=== PATIENT | male | born 1955 | race African-American/Black ===

== ENCOUNTER 2020-08-30 05:55 | Inpatient (IN) | payer OTHER ==
[2020-08-25 12:08] VITALS: BMI 36.5
[~2020-08-30 05:55] MED LIST: BUPIVICAINE 0.25%/MORPH PF/KETOROLAC - 51ML DISP.SYRINGE IA ONE; VANCOMYCIN 1,000 MG VIAL (RESTRICTED TO ID ONLY) IVPB ONE
[2020-08-30] MEDS ORDERED: BUPIVACAINE HCL/PF 0.5% (5 MG/ML) 30 ML VIAL IJ ONE (07:00)
[2020-08-30] MEDS ORDERED: MIDAZOLAM HCL 2 MG/2 ML SINGLE DOSE VIAL ONE ×2 (07:00→10:23)
[2020-08-30] MEDS ORDERED: PROPOFOL 20 ML ONE ×5 (07:15→08:13)
[2020-08-30] MEDS ORDERED: SUCCINYLCHOLINE CHLORIDE 200 MG/10 ML SYRINGE ONE (07:15)
[2020-08-30] MEDS ORDERED: VANCOMYCIN 1,000 MG VIAL (RESTRICTED TO ID ONLY) ONE (07:27)
[2020-08-30] MEDS ORDERED: BUPIVACAINE HCL 50 ML ONE (07:57)
[2020-08-30] MEDS ORDERED: ceFAZolin SODIUM 1 GM VIAL ONE ×2 (08:20→08:23)
[2020-08-30] MEDS ORDERED: TRANEXAMIC ACID 1000 MG/10 ML VIAL ONE (08:36)
[2020-08-30] MEDS ORDERED: ePHEDrine SULFATE 50 MG/1 ML AMPULE ONE (08:53)
[2020-08-30] MEDS ORDERED: BUPIVICAINE 0.25%/MORPH PF/KETOROLAC - 51ML DISP.SYRINGE IA ONE ×2 (08:53→10:19)
[2020-08-30] MEDS ORDERED: VANCOMYCIN 1,000 MG VIAL (RESTRICTED TO ID ONLY) IVPB ONE (10:14)
[2020-08-30] MEDS ORDERED: ONDANSETRON 4 MG/2 ML VIAL IVPUSH PRN ×2 (11:14→11:15)
[2020-08-30] MEDS ORDERED: MAG HYDROX/AL HYDROX/SIMETH 30 ML UNIT-DOSE CUP PO PRN (11:14)
[2020-08-30] MEDS ORDERED: MAGNESIUM HYDROX 2400MG/30ML ORAL SUSPENSION 30 ML CUP PO PRN (11:14)
[2020-08-30] MEDS ORDERED: ACETAMINOPHEN 1000 MG/100 ML VIAL (NON FORMULARY) IVPB ONE (11:15)
[2020-08-30] MEDS ORDERED: oxyCODONE HCL 5 MG TABLET PO PRN ×2 (11:15)
[2020-08-30] MEDS ORDERED: LACTATED RINGERS SOLUTION 1,000 ML IV SCH (11:15)
[2020-08-30] MEDS ORDERED: traMADol HCL 50 MG TABLET PO PRN (11:15)
[2020-08-30] MEDS ORDERED: LORazepam 2 MG/ML SDV VIAL ONE (11:19)
[2020-08-30] MEDS: LORazepam 2 MG/ML SDV VIAL IVPUSH SCH ×2 (11:20→11:35)
[2020-08-30] MEDS ORDERED: ACETAMINOPHEN INJECTION 100 ML IVPB ONE (11:49)
[2020-08-30 13:51] LABS: HIV INTERPRETATION NEGATIVE (NEGATIVE)
[2020-08-30] MEDS: CEFAZOLIN 3 GM in DEXTROSE 5%-WATER - 100 ML IVPB SCH (16:14)
[2020-08-30] MEDS: ATORVASTATIN CA 10 MG TABLET (FP) PO SCH (21:14)
[2020-08-30] MEDS: GABAPENTIN 300 MG CAPSULE PO SCH (21:15)
[2020-08-30] MEDS: oxyCODONE HCL 10 MG SUSTAINED ACTING TABLET PO SCH (21:15)
[2020-08-30] MEDS: SENNOSIDES/DOCUSATE COMBO (SENNA PLUS) TABLET (UD) PO SCH (21:15)
[2020-08-31] MEDS ORDERED: DEXTROSE 5%-WATER 100 ML IVPB ONE ×3 (00:13→16:58)
[2020-08-31] MEDS ORDERED: ceFAZolin SODIUM 1 GM VIAL ONE ×3 (00:13→16:58)
[2020-08-31] MEDS: CEFAZOLIN 3 GM in DEXTROSE 5%-WATER - 100 ML IVPB SCH (00:19)
[2020-08-31] MEDS: CEFAZOLIN 3 GM in DEXTROSE 5%-WATER 100 ML IVPB SCH ×3 (00:25→16:25)
[2020-08-31 07:52] LABS: HEMATOCRIT 37.4 % (35.4-49); HEMOGLOBIN 12.2 GM/dl (11.7-16.9); MCH 27.6 pg (25.7-33.7); MCHC 32.7 g/dl (32.0-35.9); MEAN CELL VOLUME 84.5 fl (80-96); PLATELET COUNT 188 K/MM3 (134-434); RBC 4.43 M/mm3 (4.00-5.60); RDW 12.8 % (11.9-15.9); WHITE BLOOD COUNT 7.1 K/mm3 (4.0-10.8)
[2020-08-31 08:09] LABS: CALCIUM 8.4 mg/dl (8.5-10); CREATININE 1.3 mg/dl (0.55-1.3); POTASSIUM 3.6 mmol/L (3.5-5.1)
[2020-08-31] MEDS ORDERED: LEVOTHYROXINE NA 112 MCG TABLET (FP) ONE (09:34)
[2020-08-31] MEDS ORDERED: LEVOTHYROXINE NA 25 MCG TABLET (FP) ONE (09:34)
[2020-08-31] MEDS ORDERED: PATIENT'S OWN MEDICATION (NON-FORMULARY) (Levothyroxine Sodium [Levothyroxine] 137 MCG Cap PO SCH (10:00)
[2020-08-31] MEDS: GABAPENTIN 300 MG CAPSULE PO SCH ×2 (10:08→21:33)
[2020-08-31] MEDS: ASPIRIN 325 MG TABLET PO SCH ×2 (10:09→21:33)
[2020-08-31] MEDS: SENNOSIDES/DOCUSATE COMBO (SENNA PLUS) TABLET (UD) PO SCH ×2 (10:09→21:33)
[2020-08-31] MEDS: LEVOTHYROXINE 25 MCG, LEVOTHYROXINE 112 MCG PO SCH (10:09)
[2020-08-31] MEDS: PANTOPRAZOLE 40 MG TABLET PO SCH (10:10)
[2020-08-31] MEDS: MULTIVITAMINS (DAILY MVI) TABLET (FP) PO SCH (10:11)
[2020-08-31] MEDS: oxyCODONE HCL 10 MG SUSTAINED ACTING TABLET PO SCH (10:11)
[2020-08-31] MEDS: ACETAMINOPHEN 325 MG TABLET (FP) PO SCH ×3 (10:12→20:31)
[2020-08-31] MEDS: NIFEdipine E.R. 90 MG TABLET PO SCH ×2 (10:12→12:16)
[2020-08-31] MEDS ORDERED: oxyCODONE HCL 5 MG TABLET PO PRN (11:51)
[2020-08-31] MEDS ORDERED: traMADol HCL 50 MG TABLET PO PRN (11:52)
[2020-08-31] MEDS: ATORVASTATIN CA 10 MG TABLET (FP) PO SCH (21:33)
[2020-09-01] MEDS: ACETAMINOPHEN 325 MG TABLET (FP) PO SCH ×2 (05:10→09:48)
[2020-09-01] MEDS ORDERED: LOCK ITEM NR ONE (06:29)
[2020-09-01] MEDS ORDERED: LEVOTHYROXINE NA 25 MCG TABLET (FP) ONE (07:45)
[2020-09-01] MEDS ORDERED: LEVOTHYROXINE NA 112 MCG TABLET (FP) ONE (07:46)
[2020-09-01 07:49] LABS: HEMATOCRIT 32.2 % (35.4-49); HEMOGLOBIN 10.9 GM/dl (11.7-16.9); MCH 28.7 pg (25.7-33.7); MCHC 33.8 g/dl (32.0-35.9); MEAN CELL VOLUME 85.1 fl (80-96); MEAN PLT VOLUME 9.3 fl (7.5-11.1); PLATELET COUNT 158 K/MM3 (134-434); RBC 3.79 M/mm3 (4.00-5.60); RDW 12.8 % (11.9-15.9); WHITE BLOOD COUNT 8.7 K/mm3 (4.0-10.8)
[2020-09-01] MEDS: NIFEdipine E.R. 90 MG TABLET PO SCH (09:47)
[2020-09-01] MEDS: MULTIVITAMINS (DAILY MVI) TABLET (FP) PO SCH (09:47)
[2020-09-01] MEDS: PANTOPRAZOLE 40 MG TABLET PO SCH (09:47)
[2020-09-01] MEDS: GABAPENTIN 300 MG CAPSULE PO SCH (09:47)
[2020-09-01] MEDS: LEVOTHYROXINE 25 MCG, LEVOTHYROXINE 112 MCG PO SCH (09:47)
[2020-09-01] MEDS: ASPIRIN 325 MG TABLET PO SCH (09:48)
[2020-09-01] MEDS: SENNOSIDES/DOCUSATE COMBO (SENNA PLUS) TABLET (UD) PO SCH (09:48)
[2020-09-01 10:35] VITALS: BP 128/74; PULSE 71; TEMP 98.8
== END 2020-09-01 13:20 | disposition home or self-care (01) | DRG 301 ==
LOC: FM/S 05:55
PROVIDERS: ADMIT Orthopaedic Surgery Sports Medicine; ATTEND Nurse Practitioner Acute Care
PROC: 8E0W0CZ Robotic Assisted Procedure of Trunk Region, Open Approach (ICD-10-PCS; 2020-08-30)
PROC: 0SR904A Replacement of Right Hip Joint with Ceramic on Polyethylene Synthetic Substitute, Uncemented, Open Approach (ICD-10-PCS; principal; 2020-08-30 08:37)
DX: M16.11 Unilateral primary osteoarthritis, right hip (principal); I10 Essential (primary) hypertension; E03.9 Hypothyroidism, unspecified
CPT/HCPCS: 36415; 73502-TC-RT-FY; 80048; 84460; 85027; 86803; 87340; 87389; 88305-TC; 88311-TC; 94760; 97010-GP; 97116-GP; 97162-GP; J0131